=== PATIENT | female | born 1990 | race Caucasian/White ===

== ENCOUNTER 2019-07-31 15:37 | Inpatient (IN) | payer OTHER ==
[~2019-07-31 15:37] MED LIST: ISOVUE-370 76%-LOCM 1 ML ONE
[2019-07-31 16:14] LABS: #Basophils 0.1 thou/uL (0.0-0.2); #Eosinphils 0.2 thou/uL (0.0-0.7); #Lymphocytes 2.3 thou/uL (1.20-3.40); #Monocytes 0.4 thou/uL (0.11-0.59); #Neutrophils 4.8 thou/uL (1.40-6.50); %Basophils 1.4 % (0.0-1.0); %Eosinophils 2.6 % (0.0-10.0); %Monocytes 4.7 % (0.0-10.0); %Neutrophils 61.3 % (42.0-75.0); Hemoglobin 13.4 g/dL (12.0-16.0); Mean Corpuscular HGB CONC 33.6 g/dL (32.0-36.0); Mean Corpuscular Hemoglobin 30.4 pg (27.0-31.0); Mean Corpuscular Volume 90.2 fL (78.0-98.0); Mean Platelet Volume 7.5 fL (7.4-10.4); Platelet Count 286 thou/uL (130-400); RBC Distribution Width 11.3 % (11.5-14.5); Red Blood Cell (RBC) Count 4.41 mill/uL (4.20-5.40); White Blood Cell (WBC) Count 7.8 thou/uL (4.8-10.8)
[2019-07-31 16:17] LABS: Bilirubin Negative (Negative); Blood, Urine Negative (Negative); Clarity Clear (Clear); Glucose, Urine (Dipstick) Normal (Negative); Leukocyte Negative Leu/uL (Negative); Nitrite Negative (Negative); Protein, Urine (Dipstick) Negative (Neg-Trace); Urobilinogen Normal mg/dL (Less than 2)
[2019-07-31 16:35] LABS: ALT (SGPT) 8 U/L (8-55); AST (SGOT) 15 U/L (5-34); Albumin 4.5 g/dL (3.5-5.0); Alkaline Phosphatase 63 U/L (40-150); Anion Gap 11 mmol/L (10-20); BUN (Urea Nitrogen) 9 mg/dL (7.0-18.7); Bilirubin, Total 0.6 mg/dL (0.2-1.2); Calc. Creatinine Clearance 0 mL/min (70-130); Calcium 9.5 mg/dL (7.8-10.44); Carbon Dioxide 26 mmol/L (22-29); Chloride 101 mmol/L (98-107); Estimated GFR-MDRD 90; Globulin 3.2 g/dL (2.4-3.5); Glucose 78 mg/dL (70-105); Lipase 24 U/L (8-78); Potassium 3.9 mmol/L (3.5-5.1); Protein, Total 7.7 g/dL (6.0-8.3); Sodium 134 mmol/L (136-145)
[2019-07-31] MEDS ORDERED: Morphine 4 MG/ML VIAL ONE ×2 (18:20→21:27)
[2019-07-31] MEDS ORDERED: Ketorolac Tromethamine 30 MG/ML VIAL ONE (18:21)
[2019-07-31] MEDS ORDERED: Ondansetron PF 4 MG/2 ML Vial ONE (18:21)
[2019-07-31 18:31] LABS: BHCG - Serum Negative (NEGATIVE); Pregs Control Background? CLEAR/WHITE (CLR/WHITE); Pregs Control Bar Appear? YES (CONTROL BAR)
--- NOTE | 2019-07-31 19:19 | CT ---
CT Abdomen Pelvis W Con: 07/31/2019 6:48 PM CLINICAL INFORMATION: Bilateral flank pain COMPARISON: None. TECHNIQUE: Multiple contiguous axial images were obtained and a CT of the abdomen and pelvis with IV contrast. C oronal and sagittal reformats were performed. FINDINGS: Lower Chest: within normal limits. Abdomen: Liver: within normal limits. Bile Ducts: Normal caliber. Gallbladder: No calcified gallstones. Normal caliber wall. Pancreas: within normal limits. Spleen: within normal limits. Adrenals: within normal limits. Kidneys: within normal limits. Pelvis: Reproductive Organs: No pelvic masses. Ureters: within normal limits. Bladder: within normal limits. Peritoneum: No ascites or free air, no fluid collection. Bowel: Normal caliber. Normal appendix. Mesentery and Retroperitoneum: No enlarged mesenteric or retroperitoneal lymph nodes. Vessels: Normal. Abdominal Wall: within normal limits. Bones: Within normal limits IMPRESSION: No evidence of acute intraabdominal or pelvic abnormality.
[2019-07-31] MEDS ORDERED: Ondansetron PF 4 MG/2 ML Vial IVP PRN ×2 (21:41→23:46)
--- NOTE | 2019-07-31 22:31 | PDOC.EVN ---
Event Note - Event Note Event Note: [id number] H&P dictated
[2019-07-31] MEDS ORDERED: D5 1/2 NS w/20 mEq KCL 1,000 ML IV SCH (23:45)
[2019-07-31] MEDS ORDERED: Morphine 4 MG/ML VIAL SLOW IVP PRN (23:46)
[2019-07-31] MEDS ORDERED: Ondansetron ODT 4 MG TAB SL PRN (23:46)
[2019-08-01] MEDS: Sodium Chloride 0.9% 1,000 ML IV SCH ×3 (00:27→18:38)
[2019-08-01 00:39] VITALS: BMI 23.8
--- NOTE | 2019-08-01 01:21 | HP ---
CHIEF COMPLAINT: Bilateral flank pain. HISTORY OF PRESENT ILLNESS: Ms. Vega is a 28-year-old female with no significant past medical history, presented to the emergency room with bilateral flank pain that started around 10 days ago. The patient was seen at the clinic and was given Rocephin and an antibiotic. The patient reported the pain did not improve and has been getting worse. At the clinic, her urine showed UTI. Today, her workup including CT of the abdomen and pelvis, no acute findings. Urinalysis is unremarkable. The patient continued to have pain in spite of symptomatic management in the ED. The patient is being admitted to the hospital for further management. PAST MEDICAL HISTORY: No significant past medical history. PAST SURGICAL HISTORY: 1. section. 2. Right shoulder surgery. ALLERGIES: ALLERGIC TO BACTRIM. FAMILY HISTORY: Reviewed and noncontributory. SOCIAL HISTORY: She drinks socially. No smoking history. HOME MEDICATIONS: Please see home medication reconciliation form for updated medications. REVIEW OF SYSTEMS: Review of 14 systems negative except what is mentioned in the history of present illness. PHYSICAL EXAMINATION: VITAL SIGNS: Blood pressure 127/64, pulse is 77, respiratory rate is 18, temperature 99.1. HEAD: Normocephalic, atraumatic. NECK: Supple. No JVD. CHEST: Clear bilaterally. HEART: S1, S2. Regular. ABDOMEN: Soft with bilateral flank tenderness. Bowel sounds present. NEUROLOGIC: Awake, alert, oriented x3. PSYCHIATRIC: Normal mood. EXTREMITIES: No clubbing, or cyanosis. LABORATORY DATA: CT of the abdomen and pelvis, no acute finding. Urinalysis unremarkable. Electrolytes, sodium 134, otherwise unremarkable. CBC is unremarkable. ASSESSMENT: Ms. Vega is a 28-year-old female with no significant past medical history, presenting with bilateral flank pain for the last 10 days. 1. Intractable flank pain. 2. Recent urinary tract infection. PLAN: 1. Admit. 2. IV fluid hydration. 3. Symptomatic management. 4. Reassess in a.m. If the patient show significant clinical improvement, will be able to be discharged home. Job ID: [id number]
[2019-08-01] MEDS: Morphine 4 MG/ML VIAL SLOW IVP PRN ×2 (01:24→05:47)
[2019-08-01] MEDS ORDERED: Ketorolac Tromethamine 30 MG/ML VIAL IVP PRN (06:48)
[2019-08-01] MEDS ORDERED: Famotidine/PF 20 mg/2ml Vial SLOW IVP SCH (09:00)
[2019-08-01] MEDS ORDERED: Sodium Chloride 0.9% 10 ML ONE (10:12)
[2019-08-01] MEDS: Sodium Chloride 0.9% 10 ML ONE ×3 (10:18→10:21)
[2019-08-01] MEDS ORDERED: diphenhydrAMINE 50 MG/ML VIAL IVP SCH (12:45)
[2019-08-01] MEDS ORDERED: Sodium Chloride 0.9% 500 ML IV SCH (12:45)
[2019-08-01] MEDS ORDERED: Metoclopramide HCl 10 MG/2 ML VIAL IVP SCH (12:45)
[2019-08-01] MEDS ORDERED: Nitrofurantoin Monohyd/M-Cryst 100 MG CAP PO SCH (13:00)
[2019-08-01] MEDS ORDERED: Sodium Chloride 0.9% 20 ML ONE (14:23)
[2019-08-01] MEDS: Cyclobenzaprine 10 MG TAB PO SCH ×2 (15:00→20:46)
--- NOTE | 2019-08-01 16:50 | PDOC.HOSPP ---
- Subjective Encounter Date: 08/01/19 Encounter Time: 10:00 Subjective: pt up in bed complains of pain to her flank area currently she feels ok since she had some pain meds. pt also complains of a headache which has been going on for a while. she describes it as a frontal headache that goes to her occipital area. She is also nauseated. she denies taking any new meds except for her antibiotic but she had these symptoms before that. - Objective Vital Signs & Weight: Vital Signs (12 hours) Temp Pulse Resp BP BP BP BP 08/01/19 14:30 98.1 F 48 L 20 104/60 08/01/19 09:30 96/54 L 108/60 106/61 08/01/19 08:45 98.8 F 53 L 20 105/56 L 08/01/19 06:04 97.0 F L 61 16 94/52 L Pulse Ox 08/01/19 14:30 98 08/01/19 09:30 08/01/19 08:45 98 08/01/19 06:04 98 Weight Admit Weight 147 lb 5 oz Weight 147 lb 5 oz I&O: 07/31/19 08/01/19 08/02/19 06:59 06:59 06:59 Intake Total 562 Balance 562 Result Diagrams: 07/31/19 16:06 07/31/19 16:05 Hospitalist ROS - Review of Systems Respiratory: denies: cough, dry, shortness of breath, hemoptysis, SOB with excertion, pleuritic pain, sputum, wheezing, other Cardiovascular: denies: chest pain, palpitations, orthopnea, paroxysmal noc. dyspnea, edema, light headedness, other Gastrointestinal: reports: nausea. denies: vomiting, abdominal pain, diarrhea, constipation, melena, hematochezia, other Musculoskeletal: reports: back pain - Medication Medications: Active Medications Generic Name Dose Route Start Last Admin Trade Name Freq PRN Reason Stop Dose Admin Cyclobenzaprine HCl 10 mg 08/01/19 15:00 08/01/19 15:00 Flexeril PO 10 mg TID SID Administration Famotidine 20 mg 08/01/19 09:00 08/01/19 08:47 Pepcid SLOW IVP 20 mg Q12HR SID Administration Sodium Chloride 1,000 mls @ 100 mls/hr 07/31/19 21:45 08/01/19 10:18 Normal Saline 0.9% IV 1,000 mls .Q10H SID Administration Ketorolac Tromethamine 15 mg 08/01/19 06:48 08/01/19 10:15 Toradol IVP 08/06/19 06:49 15 mg Q6H PRN Administration Pain UNCONTROLLED BY MORPHINE Ondansetron HCl 4 mg 07/31/19 21:41 08/01/19 10:22 Zofran IVP 4 mg Q6H PRN Administration Nausea/Vomiting - Exam Neck: negative: supple, symmetric, no JVD, no thyromegaly, no lymphadenopathy, no carotid bruit, JVD Heart: negative: RRR, no murmur, no gallops, no rubs, normal peripheral pulses, irregular, diminshed peripheral pulses, murmur present, II/IV, III/IV Respiratory: negative: CTAB, no wheezes, no rales, no ronchi, normal chest expansion, no tachypnea, normal percussion, rales, rhonchi, tachypneic, wheezes Gastrointestinal: negative: soft, non-tender, non-distended, normal bowel sounds , no palpable masses, no hepatomegaly, no splenomegaly, no bruit, no guarding, no rigidity, tender to palpation, distended, diminished bowl sounds, voluntary guarding Hosp A/P (1) Flank pain Code(s): R10.9 - UNSPECIFIED ABDOMINAL PAIN Status: Acute (2) Sinus bradycardia Code(s): R00.1 - BRADYCARDIA, UNSPECIFIED Status: Acute (3) UTI (urinary tract infection) Status: Acute (4) Headache Code(s): R51 - HEADACHE Status: Acute - Plan ct abd/pel negative, her esr/crp normal. she was found to be bradycardiac will get ekg and she complains of being tired and nauseated. will get cardio consult. Her uti indicates staph saprophytico and her repeat urine is normal. her tsh is normal. will give her a migraine cocktail. Her lower back pain could be due to a muscle strain. will start pt on toradol and muscle relaxant. she tells me she has not been stressed recently. will also transfer the to [facility] since her hr has been low in the 40's.
[2019-08-01] MEDS: Ketorolac Tromethamine 30 MG/ML VIAL IVP SCH ×2 (18:23→23:03)
[2019-08-01] MEDS: Nitrofurantoin Monohyd/M-Cryst 100 MG CAP PO SCH (20:46)
[2019-08-01] MEDS: Famotidine 20 MG TAB PO SCH (20:46)
[2019-08-01] MEDS: Acetaminophen 325 MG TAB PO PRN (23:04)
[2019-08-02] MEDS: Sodium Chloride 0.9% 1,000 ML IV SCH ×2 (01:36→13:19)
[2019-08-02] MEDS: Ketorolac Tromethamine 30 MG/ML VIAL IVP SCH ×3 (05:30→18:07)
[2019-08-02] MEDS: Acetaminophen 325 MG TAB PO PRN ×2 (07:39→18:07)
[2019-08-02] MEDS: Nitrofurantoin Monohyd/M-Cryst 100 MG CAP PO SCH ×2 (08:45→20:47)
[2019-08-02] MEDS: Cyclobenzaprine 10 MG TAB PO SCH ×3 (08:45→20:47)
[2019-08-02] MEDS: Famotidine 20 MG TAB PO SCH ×2 (08:45→20:47)
[2019-08-02 09:16] LABS: Troponin I Less than 0.010 ng/mL (< 0.028)
--- NOTE | 2019-08-02 10:29 | CON ---
DATE OF CONSULTATION: 08/02/2019 REASON FOR CONSULTATION: Bradycardia. HISTORY OF PRESENT ILLNESS: Ms. Vega is a very pleasant 28-year-old woman. The patient was admitted to the hospital with flank pain. She had had a recent urinary tract infection, diagnosed based on urinalysis and symptoms. She was given antibiotics. She came in with flank pain, but further evaluation did not reveal any evidence of pyelonephritis. While she is here, she has no complaint of weakness and fatigue and it has been noted that her heart rates are in the 40s at times. She feels lightheaded when she gets up. She has no chest pain or pressure. No shortness of breath. PAST MEDICAL HISTORY: Urinary tract infection. SOCIAL HISTORY: No alcohol or tobacco. REVIEW OF SYSTEMS: CONSTITUTIONAL: Positive for weakness and fatigue. VISION: No changes. HEARING: No changes. PULMONARY: No cough or wheezing. GASTROINTESTINAL: No nausea, vomiting, or diarrhea. SKIN: No rashes. NEUROLOGIC: No unilateral weakness or numbness. PSYCHIATRIC: No unusual depression or anxiety. PHYSICAL EXAMINATION: GENERAL: This is a pleasant 28-year-old woman complains of weakness and fatigue. VITAL SIGNS: Her blood pressure is 103/62, pulse now is in the 60s, it was recorded as 44 earlier. HEENT: Eyes, sclerae are nonicteric. Mouth, mucous membranes moist. NECK: Supple. No lymphadenopathy. LUNGS: Clear. CARDIAC: She is not bradycardic currently. There is a 2/6 mid systolic murmur at the left mid sternal border. No diastolic murmur. No S3. ABDOMEN: Soft and nontender. EXTREMITIES: Warm and dry. No clubbing. No cyanosis or edema. Good peripheral pulses. PERTINENT LABORATORY DATA: Hemoglobin is 13.4. WBC was 7.8. Potassium was 3.9, sodium 134. Cardiac enzymes were negative. C-reactive protein 0.5. TSH 2.8. test was negative. EKG reveals sinus bradycardia, rate 45, low-voltage QRS, no acute changes. ASSESSMENT: 1. Sinus bradycardia. 2. Recent urinary tract infection. 3. Soft murmur. PLAN: 1. Echocardiogram to evaluate the murmur. 2. Encourage the patient to sit up on the side of the bed before getting up to allow her heart rate to come up. 3. Encourage her to try to start walking in the halls. 4. We will check iron levels in view of the fatigue. Job ID: [id number]
[2019-08-02 10:57] LABS: Iron 120 ug/dL (50-170); Iron Binding Capacity, Total 298 mcg/dL (265-497)
[2019-08-02] MEDS ORDERED: Metoclopramide HCl 10 MG/2 ML VIAL IVP SCH (16:30)
--- NOTE | 2019-08-02 16:54 | EKG ---
Test Reason : TACHY Blood Pressure : / mmHG Vent. Rate : 047 BPM Atrial Rate : 047 BPM P-R Int : 158 ms QRS Dur : 084 ms QT Int : 466 ms P-R-T Axes : 064 048 045 degrees QTc Int : 412 ms Marked sinus bradycardia Low voltage QRS Cannot rule out Anterior infarct , age undetermined Abnormal ECG No previous ECGs available Confirmed by DR. Mary Kate CULVER ([id number]) on 08/02/2019 4:54:25 PM Referred By: MI Confirmed By:DR. Mary Kate CULVER
--- NOTE | 2019-08-02 16:56 | EKG ---
Test Reason : CHEST TIGHTNESS Blood Pressure : / mmHG Vent. Rate : 045 BPM Atrial Rate : 045 BPM P-R Int : 154 ms QRS Dur : 086 ms QT Int : 450 ms P-R-T Axes : 058 068 047 degrees QTc Int : 389 ms Marked sinus bradycardia with marked sinus arrhythmia Low voltage QRS Abnormal ECG When compared with ECG of 01-AUG-2019 15:41, (Unconfirmed) No significant change was found Confirmed by DR. Mary Kate CULVER ([id number]) on 08/02/2019 4:55:54 PM Referred By: ANA Confirmed By:DR. Mary Kate CULVER
--- NOTE | 2019-08-02 17:14 | CT ---
CT OF THE BRAIN WITHOUT CONTRAST: 08/02/19 HISTORY: Headache. FINDINGS: No evidence of acute infarct, hemorrhage, midline shift, or abnormal extra-axial fluid collections ar e seen. The ventricular size is normal and the basilar cisterns patent. The bony calvarium is intact. The visualized paranasal sinuses and mastoid air cells are well aerated. IMPRESSION: No CT evidence of acute intracranial process. POS: OFF
[2019-08-02] MEDS: Dihydroergotamine Mesylate 1 MG/ML AMP SLOW IVP SCH (18:06)
[2019-08-02] MEDS: Metoclopramide HCl 10 MG/2 ML VIAL IVP SCH (18:07)
[2019-08-03] MEDS: Sodium Chloride 0.9% 1,000 ML IV SCH ×2 (00:04→08:56)
[2019-08-03] MEDS: Dihydroergotamine Mesylate 1 MG/ML AMP SLOW IVP SCH ×3 (00:05→13:21)
[2019-08-03] MEDS: Ketorolac Tromethamine 30 MG/ML VIAL IVP SCH ×3 (00:06→13:22)
[2019-08-03] MEDS: Metoclopramide HCl 10 MG/2 ML VIAL IVP SCH ×3 (00:07→13:23)
[2019-08-03] MEDS: Famotidine 20 MG TAB PO SCH ×2 (08:56→21:20)
[2019-08-03] MEDS: Cyclobenzaprine 10 MG TAB PO SCH ×3 (08:56→21:20)
[2019-08-03] MEDS: Nitrofurantoin Monohyd/M-Cryst 100 MG CAP PO SCH ×2 (08:56→21:20)
[2019-08-03] MEDS ORDERED: Dihydroergotamine Mesylate 1 MG/ML AMP SLOW IVP SCH (13:00)
--- NOTE | 2019-08-03 14:36 | PDOC.HOSPP ---
- Subjective Encounter Date: 08/03/19 Encounter Time: 10:30 Subjective: pt up in bed feels a little better - Objective Vital Signs & Weight: Vital Signs (12 hours) Temp Pulse Resp BP BP BP BP 08/03/19 11:39 98.7 F 46 L 17 128/60 122/57 L 130/61 08/03/19 07:45 98.5 F 42 L 18 132/64 08/03/19 04:00 98.2 F 40 L 12 120/68 Pulse Ox 08/03/19 11:39 97 08/03/19 07:45 97 08/03/19 04:00 96 Weight Admit Weight 147 lb 5 oz Weight 148 lb 1 oz I&O: 08/02/19 08/03/19 08/04/19 06:59 06:59 06:59 Intake Total 1400 3840 Balance 1400 3840 Result Diagrams: 07/31/19 16:06 07/31/19 16:05 Hospitalist ROS - Review of Systems Cardiovascular: denies: chest pain, palpitations, orthopnea, paroxysmal noc. dyspnea, edema, light headedness, other Gastrointestinal: denies: nausea, vomiting, abdominal pain, diarrhea, constipation, melena, hematochezia, other - Medication Medications: Active Medications Generic Name Dose Route Start Last Admin Trade Name Freq PRN Reason Stop Dose Admin Acetaminophen 650 mg 08/01/19 21:43 08/02/19 18:07 Tylenol PO 650 mg Q6H PRN Administration Headache/Fever or Pain Cyclobenzaprine HCl 10 mg 08/01/19 15:00 08/03/19 08:56 Flexeril PO 10 mg TID SID Administration Dihydroergotamine Mesylate 0.5 mg 08/03/19 13:00 08/03/19 13:33 D.H.E. 45 SLOW IVP 08/03/19 15:00 Not Given NOW SID Famotidine 20 mg 08/01/19 21:00 08/03/19 08:56 Pepcid PO 20 mg BID SID Administration Sodium Chloride 1,000 mls @ 100 mls/hr 07/31/19 21:45 08/03/19 08:56 Normal Saline 0.9% IV 1,000 mls .Q10H SID Administration Ketorolac Tromethamine 15 mg 08/01/19 06:48 08/01/19 10:15 Toradol IVP 08/06/19 06:49 15 mg Q6H PRN Administration Pain UNCONTROLLED BY MORPHINE Ketorolac Tromethamine 15 mg 08/01/19 18:00 08/03/19 13:22 Toradol IVP 08/06/19 18:01 15 mg Q6HR SID Administration Nitrofurantoin Macrocrystals 100 mg 08/01/19 21:00 08/03/19 08:56 Macrobid PO 100 mg BID SID Administration Ondansetron HCl 4 mg 07/31/19 21:41 08/01/19 10:22 Zofran IVP 4 mg Q6H PRN Administration Nausea/Vomiting Sodium Chloride 10 ml 08/02/19 21:00 08/03/19 08:56 Flush - Normal Saline IVF 10 ml Q12HR SID Administration - Exam Heart: negative: RRR, no murmur, no gallops, no rubs, normal peripheral pulses, irregular, diminshed peripheral pulses, murmur present, II/IV, III/IV Respiratory: negative: CTAB, no wheezes, no rales, no ronchi, normal chest expansion, no tachypnea, normal percussion, rales, rhonchi, tachypneic, wheezes Gastrointestinal: negative: soft, non-tender, non-distended, normal bowel sounds , no palpable masses, no hepatomegaly, no splenomegaly, no bruit, no guarding, no rigidity, tender to palpation, distended, diminished bowl sounds, voluntary guarding Hosp A/P (1) Flank pain Code(s): R10.9 - UNSPECIFIED ABDOMINAL PAIN Status: Acute (2) Sinus bradycardia Code(s): R00.1 - BRADYCARDIA, UNSPECIFIED Status: Acute (3) UTI (urinary tract infection) Status: Acute (4) Headache Code(s): R51 - HEADACHE Status: Acute - Plan ct abd/pel negative, her esr/crp normal. she was found to be bradycardiac will get ekg and she complains of being tired and nauseated. will get cardio consult. Her uti indicates staph saprophytico and her repeat urine is normal. her tsh is normal. will give her a migraine cocktail. Her lower back pain could be due to a muscle strain. will start pt on toradol and muscle relaxant. she tells me she has not been stressed recently. will also transfer the to tele since her hr has been low in the 40's. 08/03 pt to be evaluated by EP for bradycardia, stress test order. will monitor. ct head negative.
--- NOTE | 2019-08-03 14:38 | PDOC.HOSPP ---
- Subjective Encounter Date: 08/02/19 Encounter Time: 11:30 Subjective: pt up in bed states her headache is better but still has it. - Objective Vital Signs & Weight: Vital Signs (12 hours) Temp Pulse Resp BP BP BP BP 08/03/19 11:39 98.7 F 46 L 17 128/60 122/57 L 130/61 08/03/19 07:45 98.5 F 42 L 18 132/64 08/03/19 04:00 98.2 F 40 L 12 120/68 Pulse Ox 08/03/19 11:39 97 08/03/19 07:45 97 08/03/19 04:00 96 Weight Admit Weight 147 lb 5 oz Weight 148 lb 1 oz I&O: 08/02/19 08/03/19 08/04/19 06:59 06:59 06:59 Intake Total 1400 3840 Balance 1400 3840 Result Diagrams: 07/31/19 16:06 07/31/19 16:05 Hospitalist ROS - Review of Systems Cardiovascular: denies: chest pain, palpitations, orthopnea, paroxysmal noc. dyspnea, edema, light headedness, other Gastrointestinal: denies: nausea, vomiting, abdominal pain, diarrhea, constipation, melena, hematochezia, other Other: headache, nausea - Medication Medications: Active Medications Generic Name Dose Route Start Last Admin Trade Name Freq PRN Reason Stop Dose Admin Acetaminophen 650 mg 08/01/19 21:43 08/02/19 18:07 Tylenol PO 650 mg Q6H PRN Administration Headache/Fever or Pain Cyclobenzaprine HCl 10 mg 08/01/19 15:00 08/03/19 08:56 Flexeril PO 10 mg TID SID Administration Dihydroergotamine Mesylate 0.5 mg 08/03/19 13:00 08/03/19 13:33 D.H.E. 45 SLOW IVP 08/03/19 15:00 Not Given NOW SID Famotidine 20 mg 08/01/19 21:00 08/03/19 08:56 Pepcid PO 20 mg BID SID Administration Sodium Chloride 1,000 mls @ 100 mls/hr 07/31/19 21:45 08/03/19 08:56 Normal Saline 0.9% IV 1,000 mls .Q10H SID Administration Ketorolac Tromethamine 15 mg 08/01/19 06:48 08/01/19 10:15 Toradol IVP 08/06/19 06:49 15 mg Q6H PRN Administration Pain UNCONTROLLED BY MORPHINE Ketorolac Tromethamine 15 mg 08/01/19 18:00 08/03/19 13:22 Toradol IVP 08/06/19 18:01 15 mg Q6HR SID Administration Nitrofurantoin Macrocrystals 100 mg 08/01/19 21:00 08/03/19 08:56 Macrobid PO 100 mg BID SID Administration Ondansetron HCl 4 mg 07/31/19 21:41 08/01/19 10:22 Zofran IVP 4 mg Q6H PRN Administration Nausea/Vomiting Sodium Chloride 10 ml 08/02/19 21:00 08/03/19 08:56 Flush - Normal Saline IVF 10 ml Q12HR SID Administration - Exam Neck: negative: supple, symmetric, no JVD, no thyromegaly, no lymphadenopathy, no carotid bruit, JVD Heart: negative: RRR, no murmur, no gallops, no rubs, normal peripheral pulses, irregular, diminshed peripheral pulses, murmur present, II/IV, III/IV Respiratory: negative: CTAB, no wheezes, no rales, no ronchi, normal chest expansion, no tachypnea, normal percussion, rales, rhonchi, tachypneic, wheezes Hosp A/P (1) Flank pain Code(s): R10.9 - UNSPECIFIED ABDOMINAL PAIN Status: Acute (2) Sinus bradycardia Code(s): R00.1 - BRADYCARDIA, UNSPECIFIED Status: Acute (3) UTI (urinary tract infection) Status: Acute (4) Headache Code(s): R51 - HEADACHE Status: Acute - Plan ct abd/pel negative, her esr/crp normal. she was found to be bradycardiac will get ekg and she complains of being tired and nauseated. will get cardio consult. Her uti indicates staph saprophytico and her repeat urine is normal. her tsh is normal. will give her a migraine cocktail. Her lower back pain could be due to a muscle strain. will start pt on toradol and muscle relaxant. she tells me she has not been stressed recently. will also transfer the to [facility] since her hr has been low in the 40's. 9/18 will get neurology to see pt. will get ct brain. 08/03 pt to be evaluated by EP for bradycardia, stress test order. will monitor. ct head negative.
[2019-08-03] MEDS ORDERED: Ketorolac Tromethamine 30 MG/ML VIAL IVP PRN (17:04)
--- NOTE | 2019-08-03 18:40 | PRG ---
DATE OF SERVICE: 08/03/2019 SUBJECTIVE: Ms. Vega is still feeling some fatigue. Heart rate is 40 at rest. No chest pain or pressure. OBJECTIVE: VITAL SIGNS: Blood pressure 123/57, pulse 40. LUNGS: Clear. CARDIAC: Bradycardic. The stress test report, I am unable to find currently. The patient states she was able to get her heart rate up to 160. ASSESSMENT: 1. Symptomatic bradycardia. 2. No evidence of structural heart disease. PLAN: Give her a trial of theophylline to see if that increases the heart rate, but we are reluctant to place a pacemaker in such a young patient. I discussed with the patient. Job ID: [id number]
[2019-08-03] MEDS ORDERED: Topiramate 25 MG TAB PO SCH (21:00)
--- NOTE | 2019-08-04 01:06 | CON ---
DATE OF CONSULTATION: 08/03/2019 CONSULTING PHYSICIAN: Hospitalist Service. IMPRESSION: Status migrainosus. PLAN: 1. Discontinue DHE. 2. Topamax 50 mg at bedtime. 3. Toradol 30 mg IV as needed. 4. Office followup for management. HISTORY OF PRESENT ILLNESS: Ms. Vega is a 28-year-old woman who reports she has been having nearly constant headache for 2 weeks prior to admission. She came in with ongoing complaints of headache and bilateral flank pain. The flank pain apparently has resolved. Her CT of the abdomen and urinalysis were unremarkable. There is a history of a urinary tract infection. She had a CT of the brain done, which was normal. She was started on the Sam protocol last night. She reports her headache is significantly better. She is finishing her last dose as of now. She had an echocardiogram done, which was also normal. Her lab work including a CBC and iron levels were unremarkable. PAST MEDICAL HISTORY: Otherwise negative. FAMILY HISTORY: Noncontributory. ALLERGIES: NONE REPORTED. SOCIAL HISTORY: She is and has a child. No illicit drug use. REVIEW OF SYSTEMS: Ten-system review of systems is otherwise negative. PHYSICAL EXAMINATION: GENERAL: She is a healthy-appearing young woman, in no acute distress. VITAL SIGNS: Have been stable. She is afebrile. HEENT: Pupils are equal and reactive. Conjunctivae are clear. Oropharynx is clear. Cranium, normocephalic and atraumatic. NECK: Supple. NEUROLOGIC: She is alert and cooperative. Her speech is fluent and clear. Cranial nerves 2 through 12 are intact. She has no focal deficits. There are no abnormal movements. SUMMARY: This is a young woman with severe headache for the last 2 weeks that broke with Sam protocol. This would be consistent with a migraine. She has not been prone to headaches prior to this. I have suggested that we at least temporarily put her on a prophylactic medication and I can follow up with her. Job ID: [id number]
--- NOTE | 2019-08-04 01:07 | CON ---
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 Her problems are: 1. Marked bradycardia in the setting of migraine-like headaches. 2. Preserved LVEF at 60% to 65% obstruction. Normal heart with mild TR only. 3. 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 ALLERGIES: SHRIMP, SULFAMETHOXAZOLE, TRIMETHOPRIM. MEDICATIONS: At home included Estarylla control pill, albuterol sulfate. SUBJECTIVE: Ms. Vega is a 28-year-old woman, who has noticed progressive fatigue and tiredness and inability to exercise for the last 10 days. She also had concomitant initiation of her headaches. She was evaluated in her primary care physician's office, was given Rocephin and antibiotic, and UTI was noted. She had backache as well at that time. She was eventually admitted and continues to be fatigued and tired. Dr. Norton evaluated the patient and underwent echocardiogram, which was unremarkable. She continues to have headaches despite some improvement with current medication regimen Topamax, , metoclopramide, Toradol, Reglan. She denies full loss of consciousness with mild dizziness. No stroke-like symptoms. No neurological deficit. Otherwise, no fever, chills, or cough. Rest of 12-point system otherwise unremarkable. PAST MEDICAL HISTORY: As above. No prior history of heart disease or heart attacks. No congenital heart disease. No history of bradycardia in the past. SOCIAL HISTORY: The patient denies smoking, EtOH, or drug abuse. FAMILY HISTORY: Noncontributory. OBJECTIVE DATA: VITAL SIGNS: Blood pressure 123/57, heart rate 51, respirations 12, the patient is afebrile. GENERAL: Alert and oriented woman, in no apparent distress. NECK: Supple. Jugular vein is not distended. CHEST: Coarse without crackles. HEART: Sounds are regular to rate and rhythm. No murmur or gallop. ABDOMEN: Benign. Bowel sounds are positive. EXTREMITIES: Lower extremities without edema, clubbing, or cyanosis. Pulses are adequate. NEUROLOGIC: The patient is nonfocal. MUSCULOSKELETAL: No joint deformity. SKIN: Without rash. DATABASE: Head CT from 08/02/2019 shows no acute intracranial process. EKG is reviewed revealing sinus bradycardia, normal AV conduction, narrow QRS. LABORATORY DATA: White cell count 7.8, hemoglobin 13.4, platelet count is 286. Sodium 134, potassium 3.9, BUN 9, creatinine 0.77. AST and ALT are 15 and 8. TSH is 2.88. Serum test is negative. C-reactive protein is 0.5. ASSESSMENT AND PLAN: Ms. Vega is a pleasant 28-year-old woman with history of no particular medical issues, presenting with marked fatigue and bradycardia in the setting of headaches. So far, no structural abnormalities are seen. Bradycardia is excessive at rest, has mild improvement with exercise. The rationale for her bradycardia is not clear. She has no hypothyroidism and sinus node disease are unlikely. 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 I think it would be reasonable to consider Neurology evaluation and optimization of her migraine headache therapy. I would like to obtain a treadmill exercise stress test also to assess sinus node function, which I hope to be normal. I am expecting her symptoms and heart rate improve with controlling of her migraine headache issues. If no other options occur and her symptoms persist, pacemaker implantation is an option, although if possible due to her young age, this should be her last resort therapy. We discussed with Dr. Norton. Thank you again for allowing me to participate in the care of this patient. Job ID: [id number]
[2019-08-04] MEDS: Cyclobenzaprine 10 MG TAB PO SCH (08:29)
[2019-08-04] MEDS: Nitrofurantoin Monohyd/M-Cryst 100 MG CAP PO SCH (08:30)
[2019-08-04] MEDS: Famotidine 20 MG TAB PO SCH (08:30)
--- NOTE | 2019-08-04 10:31 | PRG ---
DATE OF SERVICE: 08/04/2019 SUBJECTIVE: Ms. Vega had a very difficult night last night. She got 300 mg of slow-release theophylline. She said she could not sleep all night. She felt "wired." She got up this morning, and her heart rate was in the about 48 to 50 at rest. When she stood up, it went to 130. She feels weak and fatigued. OBJECTIVE: VITAL SIGNS: Today, her blood pressure 101/58, pulse is outlined above, now it is 52 in the monitor, sinus. LUNGS: Clear. CARDIAC: Normal S1, normal S2. ASSESSMENT: 1. Symptomatic sinus bradycardia. 2. No evidence of any structural heart disease. 3. The patient did not tolerate 300 mg of theophylline. PLAN: The patient wishes to be released home. We will give her a loop recorder realtime to monitor heart rhythm. Starting tomorrow, try theophylline 100 mg a day. If the patient continues with symptomatic sinus bradycardia, pacemaker could be inserted, but we are very reluctant to do so in such a young patient, this would likely lead to long lifetime pacing. Job ID: [id number]
[2019-08-04 11:58] VITALS: BP 104/60; TEMP 98.7
--- NOTE | 2019-08-04 12:12 | PRG ---
DATE OF SERVICE: 08/04/2019 SUBJECTIVE: Ms. Vega seems to be doing better this morning. Her heart rates also have increased. She has no current dizziness, loss of consciousness, or headache. Also has been under control for last day. Dr. Gill, neurologist has seen him. OBJECTIVE: VITAL SIGNS: Blood pressure is 126/79 sitting, standing 101/58, supine 119/68; heart rate 48; respirations 16; temperature 98.9 degrees Fahrenheit this morning. At the time of exam, heart rates are up in the 60s. GENERAL: Alert and oriented woman, in no apparent distress. NECK: Supple. Jugular veins not distended. CHEST: Coarse without crackles. HEART: Sounds are regular to rate and rhythm. No murmur or gallop. ABDOMEN: Benign. Bowel sounds are positive. EXTREMITIES: Lower extremities without edema, clubbing, or cyanosis. ASSESSMENT AND PLAN: Ms. Vega is a very pleasant 28-year-old woman with new onset of headaches, which appears to be consistent with migraines as per Dr. Gill, the neurologist's assessment. She is under good control with topiramate and also was initiated on theophylline to increase her heart rate. Now, she is doing better. Heart rate somewhat increased. She is still not 100% normalized with her heart rates. Symptoms might be still present, but I am hoping that we can avoid the pacemaker implantation in this young lady. I discussed the pros and cons about this approach with her. I have to see her back after an outpatient monitor is completed, which Dr. Norton has already ordered. Job ID: [id number]
--- NOTE | 2019-08-05 02:33 | DIS ---
DATE OF ADMISSION: 07/31/2019 DATE OF DISCHARGE: 08/04/2019 DISCHARGE DIAGNOSES: 1. Bradycardia. 2. Flank pain. 3. Urinary tract infection. 4. Headache. HOSPITAL COURSE: The patient is a 28-year-old female, who initially came into the hospital with complaints of bilateral flank pain, nausea, dizziness, multiple complaints. At this time, she did have a CT of abdomen and pelvis, which was completely normal. She had recently UTI that was treated with antibiotics. She then was found to have marked bradycardia, heart rate in the 40s and 42s. At this time, she was transferred to the telemetry floor and Cardiology was consulted. She did have an echocardiogram. Her echocardiogram indicated an EF of 60% to 65% with structurally normal heart. Her TSH also was normal. Her ESR and CRP were normal. Given her marked bradycardia, she also was seen by Electrophysiology. Given her young age, they wanted to hold off on putting on a pacemaker and recommended theophylline. The patient will follow up with EP and will have a loop recorder or Holter monitor to closely monitor her heart rate. She actually felt better. After starting the theophylline, she did have some tachycardia, however, her dose was decreased by Cardiology. She will be discharged home. She will follow up with her primary and also with Electrophysiology. She also had a headache while she was in the hospital, but the headache has been going on before 10 days prior to coming into the hospital. At this time, I did consult Neurology and possible migraine versus the bradycardia that was causing her to have headaches. She was put on Topamax and she felt much better. She was able to eat, felt much. Her symptoms were improved significantly before she got discharged. HOME MEDICATIONS: Her home medications will be as of the following. She is going to be on; 1. Topamax 50 mg q.p.m. 2. Theophylline 100 mg daily. 3. Albuterol as needed for her asthma. PHYSICAL EXAMINATION: VITAL SIGNS: Temperature of 98.7, heart rate of 110, respirations 14, 97% on room air, blood pressure 104/60. GENERAL: She is awake, alert, and oriented x3. Does not appear in distress. CV: S1, S2 with no murmurs, rubs, or gallops. ABDOMEN: Soft and nontender. Bowel sounds are present x2. She also had a stress test, which the results were not up, however, Cardiology will follow that as outpatient. Again, she will be discharged home. She will follow up with primary. I have given her a recommendation for primary and also with EP. Her iron studies were also normal. Job ID: [id number]
[2019-08-05] MEDS ORDERED: Theophyllin SR 24HR 100 MG CAP PO SCH (09:00)
== END 2019-08-04 13:55 | disposition home or self-care (01) | DRG 103 ==
LOC: ERS 15:37 → ERHOLD 21:04 → OBSVTOIN 21:04 → 3SE 23:52 → 2NO 08-01 18:28
PROVIDERS: ADMIT Internal Medicine; ATTEND Internal Medicine
DX: G43.901 Migraine, unspecified, not intractable, with status migrainosus (principal); N39.0 Urinary tract infection, site not specified; R00.1 Bradycardia, unspecified; R10.9 Unspecified abdominal pain; S39.012A Strain of muscle, fascia and tendon of lower back, initial encounter; G44.89 Other headache syndrome
CPT/HCPCS: 36415; 70450; 74177; 80053; 81003; 82728; 83540; 83550; 83690; 84443; 84484; 84703; 85025; 85652; 86140; 93005; 93010; 93017; 93306; 96361; 96374; 96375; 96376; J1110; J1200; J1885; J2270; J2405; J2765; Q9966; S0028

== ENCOUNTER 2020-01-13 19:28 | Observation (INO) | payer OTHER ==
[2020-01-13] MEDS ORDERED: Aspirin Chewable 81 MG TAB ONE ×2 (19:52→21:57)
[2020-01-13 19:53] LABS: #Basophils 0.1 thou/uL (0.0-0.2); #Eosinphils 0.3 thou/uL (0.0-0.7); #Lymphocytes 2.6 thou/uL (1.20-3.40); #Monocytes 0.5 thou/uL (0.11-0.59); #Neutrophils 4.4 thou/uL (1.40-6.50); %Basophils 1.1 % (0.0-1.0); %Eosinophils 4.2 % (0.0-10.0); %Lymphocytes 32.2 % (21.0-51.0); %Monocytes 6.4 % (0.0-10.0); %Neutrophils 56.1 % (42.0-75.0); Hemoglobin 13.2 g/dL (12.0-16.0); Mean Corpuscular HGB CONC 33.7 g/dL (32.0-36.0); Mean Corpuscular Hemoglobin 30.8 pg (27.0-31.0); Mean Corpuscular Volume 91.5 fL (78.0-98.0); Mean Platelet Volume 8.4 fL (7.4-10.4); Platelet Count 238 thou/uL (130-400); RBC Distribution Width 11.5 % (11.5-14.5); Red Blood Cell (RBC) Count 4.27 mill/uL (4.20-5.40); White Blood Cell (WBC) Count 7.9 thou/uL (4.8-10.8)
--- NOTE | 2020-01-13 20:13 | RAD ---
EXAM: Portable chest PROVIDED CLINICAL HISTORY: Chest pain COMPARISON: None FINDINGS: Cardiac and mediastinal silhouette is within normal limits. No focal consolidation, pleural fluid or pneumothorax evident. Left subclavian cardiac pacing device is noted, with lead tip overlying expected location of RA. IMPRESSION: No evidence for an acute cardiopulmonary process.
[2020-01-13 20:14] LABS: ALT (SGPT) 7 U/L (8-55); AST (SGOT) 13 U/L (5-34); Alkaline Phosphatase 70 U/L (40-110); Anion Gap 14 mmol/L (10-20); BUN (Urea Nitrogen) 8 mg/dL (7.0-18.7); Bilirubin, Total 0.5 mg/dL (0.2-1.2); Calc. Creatinine Clearance 0 mL/min (70-130); Calcium 9.8 mg/dL (7.8-10.44); Carbon Dioxide 25 mmol/L (22-29); Chloride 101 mmol/L (98-107); Estimated GFR-MDRD 88; Globulin 3.1 g/dL (2.4-3.5); Glucose 116 mg/dL (70-105); Potassium 4.3 mmol/L (3.5-5.1); Protein, Total 8.1 g/dL (6.0-8.3); Sodium 136 mmol/L (136-145)
[2020-01-13 21:36] LABS: BHCG - Serum Negative (NEGATIVE); Pregs Control Background? CLEAR/WHITE (CLR/WHITE); Pregs Control Bar Appear? YES (CONTROL BAR)
[2020-01-13] MEDS ORDERED: Lorazepam 2 MG/ML VIAL ONE (21:57)
[2020-01-13] MEDS ORDERED: Acetaminophen 325 MG TAB PO PRN (22:11)
[2020-01-13] MEDS ORDERED: Senokot S 8.6-50 MG TAB PO PRN (22:11)
[2020-01-13] MEDS ORDERED: HYDROcodone/Acetaminophen 5/325 mg Tablet PO PRN (22:11)
[2020-01-13 23:26] LABS: Troponin I Less than 0.010 ng/mL (< 0.028)
[2020-01-14 00:06] VITALS: BMI 22.1
--- NOTE | 2020-01-14 00:44 | PDOC.HHP ---
Hospitalist HPI - History of Present Illness Sharp chest pain History of Present Illness: 29F presents to the ED for evaluation of intermittent sharp chest pain around her pacemaker site. Reports pain lasted about a minute, made her nauseated, sweaty and felt like she was going to pass out. 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 Reports feeling palpations and dizziness over the last week which are new for her. Reports she was diagnosed in July 2019 with tachy-s[address]rie and Dr. Shultz recommended the pacemaker. Reports her mother has similar symptoms but remains untreated. Denies recent illness, travel, fever, chills, syncope. Chest pain first started last night and has had several episodes today. Reports pain takes her breath away. Denies missing any doses of her medications for hypotension. Takes her BP at home and denies changes over the last several weeks. ED Course: EKG with NSR, no changes, initial troponin negative and nothing remarkable with lab work. Will admit for serial troponins. Hospitalist ROS - Review of Systems Constitutional: denies: fever, chills, sweats, weakness, malaise, other Eyes: denies: pain, vision change, conjunctivae inflammation, eyelid inflammation, redness, other ENT: denies: ear pain, ear discharge, nose pain, nose discharge, nose congestion , mouth pain, mouth swelling, throat pain, throat swelling, other Respiratory: denies: cough, dry, shortness of breath, hemoptysis, SOB with excertion, pleuritic pain, sputum, wheezing, other Cardiovascular: reports: chest pain, palpitations Gastrointestinal: reports: nausea Genitourinary: denies: dysuria, frequency, incontinence, hematuria, retention, other Musculoskeletal: denies: neck pain, shoulder pain, arm pain, back pain, hand pain, leg pain, foot pain, other Skin: denies: rash, lesions, veronica, bruising, other Neurological: denies: weakness, numbness, incoordination, change in speech, confusion, seizures, other Hospitalist History - Past Medical History Cardiac: reports: Other (tachy-sherrie syndrome, orthostatic hypotension) Pulmonary: reports: no pertinent history [employer]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 Gastrointestinal: reports: no pertinent history - Past Surgical History Past Surgical History: reports: , Other (shoulder surgery) - Family History Family History: reports: Other (mother has similar issues with pre-syncope, dizziness) - Social History Smoking Status: Never smoker Alcohol: reports: Occassional Drugs: reports: none Living Situation: With Family Activity level: independent ambulation - Exam Eye: PERRL ENT: normocephalic atraumatic Neck: supple, no JVD Heart: RRR, normal peripheral pulses Respiratory: CTAB, normal chest expansion Gastrointestinal: soft, non-tender Extremities: no edema Skin: normal turgor Neurological: no focal deficits Musculoskeletal: normal tone Psychiatric: normal affect, A&O x 3 Hospitalist Results - Labs Result Diagrams: 01/13/20 19:42 01/13/20 19:42 Lab results: WBC 7.9 thou/uL (4.8-10.8) 01/13/20 19:42 Hgb 13.2 g/dL (12.0-16.0) 01/13/20 19:42 Hct 39.1 % (36.0-47.0) 01/13/20 19:42 MCV 91.5 fL (78.0-98.0) 01/13/20 19:42 Plt Count 238 thou/uL (130-400) 01/13/20 19:42 Neutrophils % 56.1 % (42.0-75.0) 01/13/20 19:42 Sodium 136 mmol/L (136-145) 01/13/20 19:42 Potassium 4.3 mmol/L (3.5-5.1) 01/13/20 19:42 Chloride 101 mmol/L (98-107) 01/13/20 19:42 Carbon Dioxide 25 mmol/L (22-29) 01/13/20 19:42 BUN 8 mg/dL (7.0-18.7) 01/13/20 19:42 Creatinine 0.78 mg/dL (0.6-1.1) 01/13/20 19:42 Glucose 116 mg/dL (70-105) H 01/13/20 19:42 Calcium 9.8 mg/dL (7.8-10.44) 01/13/20 19:42 Total Bilirubin 0.5 mg/dL (0.2-1.2) 01/13/20 19:42 AST 13 U/L (5-34) 01/13/20 19:42 ALT 7 U/L (8-55) L 01/13/20 19:42 Alkaline Phosphatase 70 U/L (40-110) 01/13/20 19:42 Troponin I Less than 0.010 ng/mL (< 0.028) 01/13/20 22:57 Serum Total Protein 8.1 g/dL (6.0-8.3) 01/13/20 19:42 Albumin 5.0 g/dL (3.5-5.0) 01/13/20 19:42 Hospitalist H&P A/P - Problem (1) 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 Harding who agrees to plan
[2020-01-14] MEDS: Sodium Chloride 0.9% 1,000 ML IV SCH ×2 (01:26→10:27)
[2020-01-14 01:52] LABS: #Basophils 0.1 thou/uL (0.0-0.2); #Eosinphils 0.4 thou/uL (0.0-0.7); #Lymphocytes 2.9 thou/uL (1.20-3.40); #Monocytes 0.5 thou/uL (0.11-0.59); #Neutrophils 3.8 thou/uL (1.40-6.50); %Basophils 1.5 % (0.0-1.0); %Eosinophils 5.1 % (0.0-10.0); %Monocytes 6.2 % (0.0-10.0); %Neutrophils 49.2 % (42.0-75.0); Mean Corpuscular HGB CONC 33.7 g/dL (32.0-36.0); Mean Corpuscular Hemoglobin 30.8 pg (27.0-31.0); Mean Corpuscular Volume 91.4 fL (78.0-98.0); Mean Platelet Volume 8.1 fL (7.4-10.4); Platelet Count 189 thou/uL (130-400); RBC Distribution Width 11.6 % (11.5-14.5); Red Blood Cell (RBC) Count 3.56 mill/uL (4.20-5.40); White Blood Cell (WBC) Count 7.7 thou/uL (4.8-10.8)
[2020-01-14 02:12] LABS: Troponin I 0.013 ng/mL (< 0.028)
[2020-01-14 03:30] LABS: Anion Gap 12 mmol/L (10-20); BUN (Urea Nitrogen) 7 mg/dL (7.0-18.7); Calc. Creatinine Clearance 123 mL/min (70-130); Calcium 8.8 mg/dL (7.8-10.44); Carbon Dioxide 22 mmol/L (22-29); Cardiac Risk 2.7 (Less than 4.5); Chloride 108 mmol/L (98-107); Cholesterol 120 mg/dl (< 200 Desired); Estimated GFR-MDRD Greater than 90; Glucose 132 mg/dL (70-105); HDL Cholesterol 44 mg/dL (>60 Neg Risk); LDL Cholesterol, Calculated 61 mg/dL; Potassium 3.5 mmol/L (3.5-5.1); Sodium 138 mmol/L (136-145); Triglycerides 75 mg/dL (Less than 150)
[2020-01-14] MEDS ORDERED: Famotidine 20 MG TAB PO SCH (09:00)
[2020-01-14] MEDS ORDERED: Fludrocortisone Acetate 0.1 MG TAB PO SCH (09:00)
[2020-01-14] MEDS: Midodrine HCl 5 MG TAB PO SCH ×3 (09:34→17:48)
--- NOTE | 2020-01-14 20:55 | PDOC.HOSPP ---
- Subjective Encounter Date: 01/14/20 Encounter Time: 18:30 Subjective: Patient seen and examined. Intermittent CP +. No overnight events - Objective Vital Signs & Weight: Vital Signs (12 hours) Temp Pulse Resp BP BP BP BP 01/14/20 18:55 98.2 F 60 14 138/61 01/14/20 17:20 60 16 131/76 116/64 123/67 01/14/20 15:05 98.8 F 60 14 140/85 01/14/20 11:53 98.2 F 60 16 123/70 Pulse Ox 01/14/20 18:55 97 01/14/20 17:20 01/14/20 15:05 99 01/14/20 11:53 99 Weight Weight 137 lb 1.6 oz I&O: 01/13/20 01/14/20 01/15/20 06:59 06:59 06:59 Intake Total 1485 1513 Output Total 200 1500 Balance 1285 13 Result Diagrams: 01/14/20 01:45 01/14/20 01:45 EKG Reviewed by me: Yes (Tele paced) Hospitalist ROS - Review of Systems Respiratory: denies: cough, dry, shortness of breath, hemoptysis, SOB with excertion, pleuritic pain, sputum, wheezing, other Cardiovascular: denies: chest pain, palpitations, orthopnea, paroxysmal noc. dyspnea, edema, light headedness, other - Medication Medications: Active Medications Generic Name Dose Route Start Last Admin Trade Name Freq PRN Reason Stop Dose Admin Acetaminophen 650 mg 01/13/20 22:11 01/14/20 09:34 Tylenol PO 650 mg Q4H PRN Administration Headache/Fever/Mild Pain (1-3) Midodrine 10 mg 01/14/20 08:00 01/14/20 17:48 Proamatine PO 10 mg TID-WM SID Administration - Exam General Appearance: NAD Neck: supple, no JVD Heart: RRR, no gallops Respiratory: no wheezes, no ronchi Gastrointestinal: non-tender, normal bowel sounds Extremities: no cyanosis Hosp A/P (1) Chest pain Code(s): R07.9 - CHEST PAIN, UNSPECIFIED Status: Acute (2) Orthostatic hypotension Code(s): I95.1 - ORTHOSTATIC HYPOTENSION Status: Chronic (3) 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
[2020-01-14] MEDS: HYDROcodone/Acetaminophen 5/325 mg Tablet PO PRN (23:47)
--- NOTE | 2020-01-15 07:07 | CON ---
DATE OF CONSULTATION: 01/14/2020 INDICATION FOR CONSULTATION: A 29-year-old female with orthostatic hypotension and also had significant symptomatic bradycardia in the past. Back in July of last year, she underwent a single-chamber pacemaker, right atrial pacemaker. Since that time, she has been relatively well, but still continues to have increased fatigue and says she still continues to have dizziness. She still has only mild orthostatic hypotension. Today, she had orthostatics repeated and shows a blood pressure lying of 122/67 and standing was 116/64. Heart rate remained the same and she is pacing. She did have an interrogation of the pacemaker, which showed that she is pacing approximately 57% of the time. She did have one episode of what appeared to be atrial tachycardia with heart rate up to 180s. This occurred around 1:30 in the morning on December 24. She has been on Florinef as well as midodrine for her orthostatic hypotension. The dose of Florinef was 0.1 mg a day and the dose of the midodrine is 10 mg t.i.d. She still continued to have dizziness and says she has extreme fatigue at home and yesterday, she noticed that she had a sharp pain in the left chest around the pacemaker site and then had some discomfort afterwards with some discomfort more medial to the pacemaker, but does not appear to have any abnormalities. Otherwise, no evidence of infection and chest x-ray appears to be normal. Otherwise, her bradycardia is not a problem. She has not had any episodes where it appeared that the pacemaker has failed. She did have what appeared to be some artifact on the telemetry monitoring here where it appeared possibly she could have had some second-degree heart block type 2. However, the rate remains absolutely normal and this appears more to be an artifact than actual loss of conduction. She has atrial pacing. There has been no loss of conduction. The pacemaker interrogation otherwise appeared to be normal. 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 ALLERGIES: SHE IS ALLERGIC TO SHRIMP, SULFAMETHOXAZOLE, AND TRIMETHOPRIM. MEDICATIONS: At home include Florinef 0.1 mg daily, midodrine 10 mg three times a day. SOCIAL HISTORY: No history of alcohol or tobacco abuse. She is . She has children, who are alive and well, young boys. FAMILY HISTORY: Noncontributory. REVIEW OF SYSTEMS: Unremarkable except as noted in the history of present illness. She is actively trying to go and exercise and unable to do so due to the lightheadedness and dizziness. PHYSICAL EXAMINATION: GENERAL: Reveals a well-developed, well-nourished female, who is in no acute distress. VITAL SIGNS: Her blood pressure is 140/85 at this time, O2 saturations 95%, respiratory rate is 14, heart rate is in the 60s and appears to be pacing. She is afebrile. HEENT: Shows the head to be normocephalic and atraumatic. Carotid pulses are present. There are no bruits. There is no JVD. The thyroid is not enlarged. Oral mucosa was pink and moist. CHEST: Clear to auscultation without rales, rhonchi, or wheezing. CARDIOVASCULAR: Reveals a regular rate and rhythm. Normal S1, S2. There is no S3 or S4. There were no significant murmurs, heaves, thrills, bruits, or rubs. She has a well-healed surgical incision of the pacemaker site in the left infraclavicular area. There are no other significant abnormalities in the chest noted. ABDOMEN: Soft and nontender. EXTREMITIES: Showed no clubbing, cyanosis, or edema. Pedal pulses are present. NEUROLOGIC: She appears to be intact. Again, orthostatics were not significant, from lying was 123/67, sitting was 131/76, and standing was 116/64. LABORATORY DATA: Shows a WBC of 7.7, hemoglobin 11, platelet counts 189,000. Her sodium was 138, potassium 3.5, BUN was 7 with a creatinine 0.67. LDL was 61, cholesterol was 120 total, and blood sugar was 132. Chest x-ray shows a single-chamber pacemaker in the right atrium with what appears to be normal chest x-ray otherwise and the interrogation of the pacemaker appears to be normal. She did have one episode on December 24, where she had an episode of what appeared to be atrial tachycardia, supraventricular tachycardia with heart rate of 185 beats per minute. This lasted about 30 seconds and then resolved. This occurred early in the morning approximately, I believe, 1:35 a.m. She has had no further syncopal episodes since the pacemaker was inserted, but she says sometimes she does feel like she is going to pass out, but she is yet to have a syncopal episode. IMPRESSION: Orthostatic hypotension with symptomatic bradycardia in the past, which has been corrected by pacemaker insertion, but the orthostatic hypotension apparently still persists. She is on midodrine as well as Florinef. I will increase the Florinef to 0.2 mg a day. If this is not adequate, eventually we may need to switch her to droxidopa or continue to increase the Florinef up to a maximum of 0.5 mg a day to see whether or not this will help some with her orthostatic hypotension. Further care of the patient will be by Dr. Norton when he visits with the patient tomorrow morning. We will also ask Dr. Shultz to examine the tracings that were performed when the pacemaker was interrogated for the 30 seconds of the supraventricular tachycardia, but she did not appear to be symptomatic at that time and apparently was sleeping. Job ID: [id number]
[2020-01-15] MEDS ORDERED: Calcium Carbonate 500 MG ChewTAB PO PRN (08:34)
[2020-01-15] MEDS ORDERED: Mag-Al 1200 mg/1200 mg/30 ML UDCUP PO PRN (08:34)
[2020-01-15] MEDS ORDERED: Ondansetron ODT 4 MG TAB PO PRN (08:34)
[2020-01-15] MEDS: Fludrocortisone Acetate 0.1 MG TAB PO SCH (08:37)
[2020-01-15] MEDS: Midodrine HCl 5 MG TAB PO SCH ×3 (08:37→16:42)
--- NOTE | 2020-01-15 22:44 | PDOC.HOSPP ---
- Subjective Encounter Date: 01/15/20 Encounter Time: 15:00 Subjective: Patient seen and examined for CP/symptomatic bradycardia. Intermittent CP. No other complaints. No overnight events - Objective Vital Signs & Weight: Vital Signs (12 hours) Temp Pulse Resp BP Pulse Ox 01/15/20 16:02 98.2 F 69 16 115/58 L 98 01/15/20 12:08 97.9 F 60 16 114/67 98 Weight Weight 138 lb 9.6 oz I&O: 01/14/20 01/15/20 01/16/20 06:59 06:59 06:59 Intake Total 1485 1983 650 Output Total 200 2700 800 Balance 1285 -187 -150 Result Diagrams: 01/14/20 01:45 01/14/20 01:45 EKG Reviewed by me: Yes (Tele paced) Hospitalist ROS - Review of Systems Respiratory: denies: cough, dry, shortness of breath, hemoptysis, SOB with excertion, pleuritic pain, sputum, wheezing, other Cardiovascular: denies: chest pain, palpitations, orthopnea, paroxysmal noc. dyspnea, edema, light headedness, other - Medication Medications: Active Medications Generic Name Dose Route Start Last Admin Trade Name Freq PRN Reason Stop Dose Admin Acetaminophen 650 mg 01/13/20 22:11 01/14/20 09:34 Tylenol PO 650 mg Q4H PRN Administration Headache/Fever/Mild Pain (1-3) Hydrocodone Bitart/Acetaminophen 1 tab 01/13/20 22:11 01/15/20 16:42 Grethel 5/325 PO 1 tab Q4H PRN Administration Moderate Pain (4-6) Hydrocodone Bitart/Acetaminophen 2 tab 01/13/20 22:11 01/14/20 23:47 Grethel 5/325 PO 2 tab Q4H PRN Administration Severe Pain (7-10) Fludrocortisone Acetate 0.2 mg 01/15/20 09:00 01/15/20 08:37 Florinef PO 0.2 mg DAILY SID Administration Midodrine 10 mg 01/14/20 08:00 01/15/20 16:42 Proamatine PO 10 mg TID-WM SID Administration - Exam General Appearance: NAD Neck: supple, no JVD Heart: no gallops, no rubs Respiratory: no wheezes Gastrointestinal: non-tender, non-distended Extremities: no clubbing Hosp A/P (1) Chest pain Code(s): R07.9 - CHEST PAIN, UNSPECIFIED Status: Acute (2) Orthostatic hypotension Code(s): I95.1 - ORTHOSTATIC HYPOTENSION Status: Chronic (3) Tachy-sherrie syndrome Code(s): I49.5 - SICK SINUS SYNDROME Status: Chronic (4) AV block Code(s): I44.30 - UNSPECIFIED ATRIOVENTRICULAR BLOCK Status: Acute - Plan DVT proph w/SCDs Cont Midodrine Cont Florinef 0.2 mg daily Possible PM upgrade today Cont other meds as above
[2020-01-16] MEDS ORDERED: Lidocaine 1% (PF) 30 ML VIAL ONE (06:45)
[2020-01-16] MEDS ORDERED: Propofol 500 MG/50 ML VIAL ONE (07:43)
[2020-01-16] MEDS ORDERED: PROPOFOL 40 ML ONE (07:45)
[2020-01-16] MEDS ORDERED: diphenhydrAMINE 50 MG/ML VIAL ONE (08:35)
[2020-01-16] MEDS ORDERED: Hydrocortisone Sod Succ/PF 100 mg/2 ml Vial ONE (08:35)
--- NOTE | 2020-01-16 09:20 | CON ---
DATE OF CONSULTATION: Dictated by Dorothy Restrepo, Nurse Practitioner, as scribe for Dr. Navdeep Shultz. REASON FOR CONSULTATION: Symptomatic arrhythmia and conduction disease. HISTORY OF PRESENT ILLNESS: Ms. Vega is a 29-year-old woman with a history of vasovagal syncope and marked bradycardia with vasodepressor effect complicating her severe dizzy episodes. She had a degree of postural orthostatic tachycardia as well. She had a single-chamber pacemaker implanted that helped with support of her symptoms. However, she still requires high dose of midodrine with some recurrence of symptoms. She was last seen in November when her midodrine was further titrated up and the possibility of discontinuing midodrine in favor of Northera was contemplated. We found that she presented to [facility] on January 13. She was reporting fatigue and dizziness. Her pacemaker was interrogated and there was some concern for an atrial tachycardia. She had sharp pain in her left chest around the pacemaker site the day before she came to the emergency room with some residual discomfort that moved medially. Chest x-ray was performed and was essentially normal. Her bradycardia is not a problem and being corrected with pacemaker. There was some concern for second-degree Mobitz block prompting Electrophysiology consultation. Ms. Vega is currently reporting occasional palpitations and left chest wall pain around the site of her pacemaker. She endorses some dizziness and fatigue. Otherwise, she denies any true syncopal episodes, stroke, or stroke-like symptoms. REVIEW OF SYSTEMS: 12-point review of systems is negative except that listed above in HPI. PAST MEDICAL HISTORY: 1. Symptomatic bradycardia in the setting of migraine headaches. 2. Single-chamber atrial pacemaker implanted on 08/30/[address] [employer]. 3. Left ventricular ejection fraction normal by echo in July 2019, estimated at 60% to 65%. 4. 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 5. Migraine headaches. 6. Postural orthostatic tachycardia/dysautonomia. ALLERGIES: BACTRIM. MEDICATIONS: Home medications include: 1. Midodrine 10 mg p.o. t.i.d. 2. Florinef 0.2 mg daily. OBJECTIVE: VITAL SIGNS: Temperature 97.9, pulse 60, blood pressure 114/67, oxygen saturation is 98%, respirations 16. GENERAL: The patient is on room air. The patient is alert and oriented. Speech is clear. Affect is appropriate. She is in no apparent distress at the time of the exam. NECK: Supple without jugular venous distention. There is no lymphadenopathy. Trachea is midline. LUNGS: Clear to auscultation bilaterally without wheezes, crackles, or rhonchi. HEART: Heart rate is irregularly irregular with crisp S1 and S2. There is left-sided precordial pacemaker, site is without reaction and has healed nicely. ABDOMEN: Soft and nontender without palpable masses. EXTREMITIES: Warm and dry to touch. Well perfused without clubbing, cyanosis, or edema. NEUROLOGIC: Grossly intact and nonfocal. Gait was not assessed. DATABASE: Telemetry and EKG were reviewed, which largely show atrial sensing and ventricular pacing with intact AV rebel conduction. There are some episodes of second-degree Mobitz type 1 block during the night and day with correlation of symptoms. IMPRESSION: 1. Transient second-degree Mobitz type 1 AV block with correlation of symptoms occurring both at night and during the day. 2. History of vasovagal syncope with postural orthostatic tachycardia syndrome, being treated with midodrine and Florinef. 3. Sinus tachycardia. 4. Single-chamber atrial [employer] pacemaker. PLAN AND RECOMMENDATIONS: Ms. Vega is having symptoms that correlate with her episodes of her second-degree heart block, Mobitz type 1. At the time of her pacemaker implant, she was having vasovagal syncope, but intact AV rebel conduction, so single-chamber device was implanted. At this point in light of her conduction disease that is seen and the symptoms associated, she may benefit from upgrade to a dual-chamber system. This can be done in the near future. We discussed the risks, benefits, and alternatives. She is in favor of having an additional wire added to her pacemaker to help treat her ongoing symptoms. We did discuss the fact that her symptoms may not completely resolve with the addition of an RV lead. It is certainly not her POTS syndrome and orthostatic issues. She will require continued support with midodrine and Florinef and supportive therapy. If her medication regimen is ineffective, we could also consider transitioning to [facility]. Thank you for allowing me to participate in the care of this patient. We will continue to follow and arrange for an RV lead implant in the near future. Job ID: [id number]
--- NOTE | 2020-01-16 10:13 | RAD ---
CHEST 1 VIEW: Date: 01/16/2020 Time: 0933 hours HISTORY: Pacemaker placement. FINDINGS: Comparison made to exam of 01/13/2020. There has been interval removal of the previous pacemaker and placement of a new pacemaker with bipol ar leads in the right atrium and right ventricle since the exam of 01/13/2020. The heart size is norm al. The lungs are expanded without lobar consolidation, pneumothoraces, or pleural effusions. IMPRESSION: No acute process. POS: TPC
[2020-01-16] MEDS: Midodrine HCl 5 MG TAB PO SCH ×2 (10:21→11:50)
[2020-01-16] MEDS: HYDROcodone/Acetaminophen 5/325 mg Tablet PO PRN (10:23)
[2020-01-16] MEDS: Fludrocortisone Acetate 0.1 MG TAB PO SCH (10:24)
[2020-01-16] MEDS ORDERED: Ondansetron PF 4 MG/2 ML Vial IVP PRN (10:29)
[2020-01-16] MEDS ORDERED: Acetaminophen/Codeine 30-300mg Tablet PO PRN ×2 (10:30)
[2020-01-16 11:05] VITALS: BP 126/59; TEMP 98.1
[2020-01-16] MEDS ORDERED: Cephalexin 250 MG CAP PO SCH (13:00)
--- NOTE | 2020-01-16 23:15 | DIS ---
DATE OF ADMISSION: 01/13/2020 DATE OF DISCHARGE: 01/16/2020 DISCHARGE DISPOSITION: Home. FOLLOWUP: 1. Follow up with primary care physician, Dr. Angela Robles in 1 week. 2. Follow up with Cardiology, Dr. Norton, and Electrophysiology, Dr. Shultz as scheduled. DISCHARGE MEDICATIONS: 1. Fludrocortisone dose was increased to 0.2 mg daily. 2. Keflex 500 mg every 6 hourly for 7 days. 3. Midodrine 10 mg 3 times a day. The patient was seen on the day of discharge. Denies any new complaints. No chest pain, shortness of breath, palpitations, lightheadedness, or dizziness reported. Orthostatic vitals were negative. BRIEF HOSPITAL COURSE: The patient is a 29-year-old female with symptomatic bradycardia, status post pacemaker and postural orthostatic tachycardia/dysautonomia, presented to the hospital with chest discomfort along with intermittent palpitations. Please refer to the history and physical for further details. The patient was admitted to the telemetry unit with the above diagnosis. A campus monitor was consistent with transient second-degree Mobitz type 1 block that was correlating with her symptoms. Due to orthostatic hypotension, fludrocortisone dose was increased. She was evaluated by Cardiology and Electrophysiology. Pacemaker was upgraded to dual-chamber system. She has been cleared by consultants for discharge. FINAL DIAGNOSES: 1. Chest discomfort with symptomatic arrhythmia and conduction disease. 2. History of symptomatic bradycardia with a single-chamber pacemaker in the past. This was upgraded to dual-chamber this admission. 3. History of migraine headaches. 4. Postural orthostatic tachycardia/dysautonomia. The patient understands the plan of care. Job ID: [id number]
--- NOTE | 2020-01-20 15:19 | EKG ---
Test Reason : Blood Pressure : / mmHG Vent. Rate : 060 BPM Atrial Rate : 060 BPM P-R Int : 212 ms QRS Dur : 086 ms QT Int : 416 ms P-R-T Axes : 021 054 031 degrees QTc Int : 416 ms Atrial-paced rhythm with prolonged AV conduction Abnormal ECG Confirmed by NICHOLE TERAN ([id number]), video editor EDMOND LOZANO ([id number]) on 01/20/2020 3:19:00 PM Referred By: Confirmed By:NICHOLE TERAN
== END 2020-01-16 14:45 | disposition home or self-care (01) ==
LOC: ERS 19:28 → 2SW 22:07
PROVIDERS: ADMIT Internal Medicine; ATTEND Internal Medicine
PROC: 0JPT0PZ Removal of Cardiac Rhythm Related Device from Trunk Subcutaneous Tissue and Fascia, Open Approach (ICD-10-PCS; principal; 2020-01-16)
PROC: 0JH606Z Insertion of Pacemaker, Dual Chamber into Chest Subcutaneous Tissue and Fascia, Open Approach (ICD-10-PCS; 2020-01-16)
PROC: 02H64JZ Insertion of Pacemaker Lead into Right Atrium, Percutaneous Endoscopic Approach (ICD-10-PCS; 2020-01-16)
PROC: 02HK4JZ Insertion of Pacemaker Lead into Right Ventricle, Percutaneous Endoscopic Approach (ICD-10-PCS; 2020-01-16)
DX: I49.5 Sick sinus syndrome (principal); I95.1 Orthostatic hypotension; Z79.899 Other long term (current) drug therapy; Z88.2 Allergy status to sulfonamides; Z91.013 Allergy to seafood
CPT/HCPCS: 33214; 36005; 36415; 71045; 75820; 80048; 80053; 80061; 84443; 84484; 84703; 85025; 85379; 93005; 96361; 96374; C1785; G0378; J0690; J1200; J1720; J2001; J2060; J2704; J3490

== ENCOUNTER 2020-04-02 12:45 | Outpatient (CLI) | payer OTHER ==
--- NOTE | 2020-04-02 14:06 | RAD ---
PORTABLE CHEST: 04/02/20 HISTORY: Dyspnea. Pacemaker complications. COMPARISON: 01/16/20. Lungs appear clear of infiltrate. Heart and mediastinum unremarkable. Vasculature is upper normal and stable. Dual lead pacemaker is again noted with leads appearing in adequate position. IMPRESSION: No acute abnormality identified. POS: AGW
== END 2020-04-02 12:46 | disposition home or self-care (01) ==
LOC: BICRAD 12:45
PROVIDERS: ATTEND Nurse Practitioner
DX: R06.00 Dyspnea, unspecified (principal); T82.9XXA Unspecified complication of cardiac and vascular prosthetic device, implant and graft, initial encounter
CPT/HCPCS: 71045

== ENCOUNTER 2020-06-12 22:01 | Observation (INO) | payer OTHER ==
[2020-06-12 23:15] LABS: #Basophils 0.1 thou/uL (0.0-0.2); #Eosinphils 0.2 thou/uL (0.0-0.7); #Lymphocytes 2.8 thou/uL (1.20-3.40); #Monocytes 0.6 thou/uL (0.11-0.59); #Neutrophils 4.5 thou/uL (1.40-6.50); %Basophils 1.2 % (0.0-1.0); %Eosinophils 2.8 % (0.0-10.0); %Monocytes 7.1 % (0.0-10.0); %Neutrophils 54.9 % (42.0-75.0); Mean Corpuscular HGB CONC 33.3 g/dL (32.0-36.0); Mean Corpuscular Hemoglobin 30.7 pg (27.0-31.0); Mean Corpuscular Volume 92.2 fL (78.0-98.0); Mean Platelet Volume 8.4 fL (7.4-10.4); Platelet Count 241 thou/uL (130-400); RBC Distribution Width 11.9 % (11.5-14.5); Red Blood Cell (RBC) Count 4.24 mill/uL (4.20-5.40); White Blood Cell (WBC) Count 8.2 thou/uL (4.8-10.8)
[2020-06-12 23:36] LABS: ALT (SGPT) 9 U/L (8-55); AST (SGOT) 17 U/L (5-34); Albumin 4.5 g/dL (3.5-5.0); Alkaline Phosphatase 71 U/L (40-110); Anion Gap 13 mmol/L (10-20); BUN (Urea Nitrogen) 9 mg/dL (7.0-18.7); Bilirubin, Total 0.4 mg/dL (0.2-1.2); Calc. Creatinine Clearance 0 mL/min (70-130); Calcium 9.2 mg/dL (7.8-10.44); Carbon Dioxide 26 mmol/L (22-29); Chloride 101 mmol/L (98-107); Estimated GFR-MDRD Greater than 90; Globulin 3.1 g/dL (2.4-3.5); Glucose 84 mg/dL (70-105); Potassium 4.2 mmol/L (3.5-5.1); Protein, Total 7.6 g/dL (6.0-8.3); Sodium 136 mmol/L (136-145)
[2020-06-13 00:04] LABS: Pregnancy Test - Urine (BHCG) Negative (Negative)
[2020-06-13 00:05] LABS: Pregu Control Background? CLEAR/WHITE (CLR/WHITE); Pregu Control Bar Appear? YES (CONTROL BAR); Specific Gravity 1.017 (1.002-1.036)
[2020-06-13] MEDS ORDERED: Aspirin Chewable 81 MG TAB ONE (00:21)
[2020-06-13 00:24] LABS: CKMB 0.5 ng/mL (0-6.6)
[2020-06-13 02:45] LABS: Troponin I 0.017 ng/mL (< 0.028)
[2020-06-13] MEDS ORDERED: Acetaminophen 325 MG TAB PO PRN (03:04)
[2020-06-13 03:18] VITALS: BMI 20.9
[2020-06-13] MEDS ORDERED: Morphine 2 MG/ML VIAL SLOW IVP SCH (03:45)
[2020-06-13 05:17] LABS: #Basophils 0.1 thou/uL (0.0-0.2); #Eosinphils 0.2 thou/uL (0.0-0.7); #Lymphocytes 2.4 thou/uL (1.20-3.40); #Monocytes 0.4 thou/uL (0.11-0.59); #Neutrophils 3.2 thou/uL (1.40-6.50); %Basophils 0.8 % (0.0-1.0); %Eosinophils 3.5 % (0.0-10.0); %Lymphocytes 38.1 % (21.0-51.0); %Monocytes 6.7 % (0.0-10.0); %Neutrophils 50.8 % (42.0-75.0); Hemoglobin 12.2 g/dL (12.0-16.0); Mean Corpuscular HGB CONC 31.2 g/dL (32.0-36.0); Mean Corpuscular Hemoglobin 28.7 pg (27.0-31.0); Mean Platelet Volume 7.6 fL (7.4-10.4); Platelet Count 227 thou/uL (130-400); RBC Distribution Width 11.8 % (11.5-14.5); Red Blood Cell (RBC) Count 4.26 mill/uL (4.20-5.40); White Blood Cell (WBC) Count 6.2 thou/uL (4.8-10.8)
[2020-06-13 05:47] LABS: Anion Gap 11 mmol/L (10-20); BUN (Urea Nitrogen) 8 mg/dL (7.0-18.7); Calc. Creatinine Clearance 116 mL/min (70-130); Calcium 9.3 mg/dL (7.8-10.44); Carbon Dioxide 29 mmol/L (22-29); Chloride 102 mmol/L (98-107); Estimated GFR-MDRD Greater than 90; Glucose 86 mg/dL (70-105); Sodium 138 mmol/L (136-145)
[2020-06-13 09:54] LABS: Bacteria/HPF 1+ HPF (None Seen); Bilirubin Negative (Negative); Blood, Urine 1+ (Negative); Clarity Clear (Clear); Glucose, Urine (Dipstick) Normal (Negative); Ketone, Urine Trace mg/dL (Negative); Leukocyte Negative Leu/uL (Negative); Nitrite Negative (Negative); Protein, Urine (Dipstick) Negative (Neg-Trace); RBC/HPF 0-3 HPF (0-3); Specific Gravity, Urine 1.018 (1.002-1.036); Urobilinogen Normal mg/dL (Less than 2); WBC/HPF 0-3 HPF (0-3); pH, Urine 6.5 (5.0-9.0)
[2020-06-13 09:55] LABS: Urine Culture Reflex No No
[2020-06-13] MEDS ORDERED: Bisacodyl 10 MG SUPP PR PRN (10:24)
[2020-06-13] MEDS ORDERED: Ondansetron PF 4 MG/2 ML Vial IVP PRN (10:24)
[2020-06-13] MEDS ORDERED: Guaifenesin DM 100-10/5 ML UDCUP PO PRN (10:24)
[2020-06-13] MEDS ORDERED: Calcium Carbonate 500 MG ChewTAB PO PRN (10:24)
[2020-06-13] MEDS ORDERED: Senokot S 8.6-50 MG TAB PO PRN (10:24)
[2020-06-13] MEDS ORDERED: Sodium Chloride 0.9% 1,000 ML IV SCH (10:30)
[2020-06-13] MEDS ORDERED: Ketorolac Tromethamine 30 MG/ML VIAL IVP STA (10:50)
[2020-06-13] MEDS ORDERED: Colchicine 0.3 MG TAB PO SCH (10:51)
[2020-06-13] MEDS ORDERED: Colchicine 0.6 MG TAB PO SCH (11:00)
--- NOTE | 2020-06-13 12:10 | CON ---
DATE OF CONSULTATION: 06/13/2020 REASON FOR CONSULTATION: Chest pain. HISTORY OF PRESENT ILLNESS: Ms. Vega is a 29-year-old woman. She has a history of severe orthostatic hypotension, vasovagal syncope, and previous pacemaker insertion. She, a month ago, was started on droxidopa with a marked improvement in her symptoms. Yesterday, she started having the onset of chest pain. It starts in the middle of her chest and spreads across her chest. She finally came to the emergency room. The pain has been persistent and then sometimes the pain goes through her back. She does not seem to make much difference if she lays down or sits up, but it is definitely worse when she takes a deep breath. The patient does not use tobacco. Does not smoke. No other risk factors for coronary artery disease. MEDICATIONS: At home as mentioned, she takes droxidopa. PAST MEDICAL HISTORY: She has a history of dual-chamber pacemaker insertion for bradyarrhythmias. PHYSICAL EXAMINATION: GENERAL: This is a very pleasant 29-year-old woman who continued to have chest pain. VITAL SIGNS: Blood pressure 119/83, pulse 60, on the monitor it is atrial paced, ventricular sensed. NECK: Neck veins are normal. Normal carotid upstrokes. LUNGS: Clear. CARDIAC: Normal S1. Normal S2. There is no murmur, rub, or gallop. ABDOMEN: Soft and nontender. No hepatosplenomegaly. EXTREMITIES: Warm, dry. No clubbing, cyanosis, or edema. Good peripheral pulses. PERTINENT LABORATORY: She has one indeterminate troponin at 0.043. The others are in the normal range. Hemoglobin is 12.2, WBC 6.2. EKG reveals atrial paced, ventricular sensed rhythm with no changes. ASSESSMENT: 1. Chest pain, very suspicious for pericarditis clinically, especially with the description of the pain and worsening with a breath. 2. Extremely low risk factor profile for coronary artery disease. PLAN: 1. Anti-inflammatories. We will start with a dose of Toradol. 2. Colchicine. 3. Try to avoid steroids if at all possible. I will check back with her later. Hopefully, the patient will have a quick resolution of her symptoms with the above treatment. Job ID: [id number]
[2020-06-13 14:22] LABS: SARS-CoV-2 MS2 Positive; SARS-CoV-2 N Gene Negative; SARS-CoV-2 S Gene Negative; SARS-CoV-2 by NAA Not Detected (NotDetected); SARS-CoV-2 orf1ab Negative
[2020-06-13] MEDS: DROXIDOPA PO SCH ×2 (14:44→21:02)
[2020-06-13] MEDS: HYDROcodone/Acetaminophen 5/325 mg Tablet PO PRN ×2 (17:58→22:21)
--- NOTE | 2020-06-13 18:41 | HP ---
REASON FOR ADMISSION: Chest pain. HISTORY OF PRESENTING ILLNESS: The patient gives history of developing retrosternal chest pain with radiation to both shoulders. This happened around 06:30 p.m. She was in her backyard and standing when this started. The patient tried to sit down and lay back. Her tried to prop her up, but then the patient fell backwards. She also had shortness of breath for a brief moment when this happened. The pain was sharp in nature and was a 6 to 7/10 in intensity. No complaints of fever, cough, or expectoration. No exposure to coronavirus as such. Has no complaints of palpitations or PND. PAST MEDICAL AND SURGICAL HISTORY: History of pacemaker, orthostatic hypotension. CURRENT MEDICATIONS: The patient is on Northera 500 mg 3 times daily. ALLERGIES: SULFA AND SHRIMP. PERSONAL HISTORY: Does not abuse alcohol or drugs. No history of smoking. 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 FAMILY HISTORY: The patient is adopted. CODE STATUS: Full. Power of trademark attorney is her . REVIEW OF SYSTEMS: CONSTITUTIONAL: Negative for weight loss or gain, ability to conduct usual activities. SKIN: Negative for rash, itching. EYES: Negative for double vision, pain. ENT/MOUTH: Negative for nose bleeding, neck stiffness, pain, tenderness. CARDIOVASCULAR: Negative for palpitations, dyspnea on exertion, orthopnea. RESPIRATORY: Negative for shortness of breath, wheezing, cough, hemoptysis, fever or night sweats. GASTROINTESTINAL: Negative for poor appetite, abdominal pain, heartburn, nausea, vomiting, constipation, or diarrhea. GENITOURINARY: Negative for urgency, frequency, dysuria, nocturia. MUSCULOSKELETAL: Negative for pain, swelling. NEUROLOGIC/PSYCHIATRIC: Negative for anxiety, depression. ALLERGY/IMMUNOLOGIC: Negative for skin rash, bleeding tendency. PHYSICAL EXAMINATION: GENERAL: The patient is a 29-year-old female, who is currently not in any acute distress. VITAL SIGNS: Blood pressure 124/84, pulse 62 per minute, respiratory rate 18 per minute, temperature 97.7 degrees Fahrenheit, and saturating 98% on room air. NECK: Supple. No elevated JVD. HEENT: Eyes; extraocular muscles intact. Pupils reacting to light. Oral cavity, mucous membranes are moist. No exudates or congestion. CARDIOVASCULAR: S1, S2 heard. Regular rhythm. RESPIRATORY: Air entry 2+ bilateral. No rales or rhonchi. ABDOMEN: Soft. Bowel sounds heard. No tenderness, rigidity, or guarding. EXTREMITIES: No peripheral edema or calf tenderness. VASCULAR SYSTEM: Peripheral pulses 2+, bilateral. No ischemic ulcerations or gangrene. CENTRAL NERVOUS SYSTEM: No gross focal motor deficits noted. The patient is alert, awake, oriented well. PSYCHIATRIC: The patient's mood is euthymic. No hallucinations or delusions. LABORATORY DATA: EKG done shows normal sinus rhythm. COVID-19 PCR is not detected. Urine test is negative. BUN 8, creatinine 0.6. Troponin 1st set was 0.04; subsequent three sets are negative. CK-MB 0.5. Magnesium 1.9, albumin 4.5, serum bicarb is 26. D-dimer is less than 0.27. H and H 12 and 39, platelet count 227 with white count of 6. CLINICAL IMPRESSION AND PLAN: The patient will be under observation on telemetry for chest pain. I have discussed her findings with Dr. Norton. The patient will continue on Northera 500 mg 3 times daily as before. Dr. Norton will evaluate the patient. The patient likely might have pericarditis. She is otherwise hemodynamically stable for now. No signs of ACS on the EKG or telemetry. Job ID: [id number]
[2020-06-13] MEDS: Colchicine 0.6 MG TAB PO SCH (21:02)
[2020-06-13] MEDS ORDERED: Ketorolac Tromethamine 30 MG/ML VIAL IVP SCH (21:30)
[2020-06-14 05:51] LABS: Anion Gap 9 mmol/L (10-20); BUN (Urea Nitrogen) 9 mg/dL (7.0-18.7); Calc. Creatinine Clearance 114 mL/min (70-130); Calcium 8.6 mg/dL (7.8-10.44); Carbon Dioxide 27 mmol/L (22-29); Chloride 104 mmol/L (98-107); Estimated GFR-MDRD Greater than 90; Glucose 75 mg/dL (70-105); Potassium 4.4 mmol/L (3.5-5.1); Sodium 136 mmol/L (136-145)
[2020-06-14] MEDS ORDERED: Ketorolac Tromethamine 30 MG/ML VIAL IVP SCH ×2 (06:00→12:15)
[2020-06-14] MEDS: Colchicine 0.6 MG TAB PO SCH (08:53)
[2020-06-14] MEDS: DROXIDOPA PO SCH ×2 (08:53→16:57)
--- NOTE | 2020-06-14 12:38 | PRG ---
DATE OF SERVICE: 06/14/2020 SUBJECTIVE: Ms. Vega's chest pain is improved today, but she still has chest pain best relief of pain. She last tried to lie flat, it is worse. These symptoms are typical of pericarditis. The EKG did not show any ST changes, but her typical symptoms are typical of pericarditis. OBJECTIVE: VITAL SIGNS: Her blood pressure 126/68, pulse 60 and it is regular. LUNGS: Clear. CARDIAC: Normal S1 and normal S2. I do not hear murmur, rub, or gallop. ABDOMEN: Soft and nontender. EXTREMITIES: No clubbing or cyanosis. There is no edema. ASSESSMENT: Chest pain, typical of pericarditis. One troponin level that was in the indeterminate range again compatible with pericarditis. PLAN: 1. We will do an echocardiogram. 2. Colchicine 0.6 mg twice a day. 3. She is on anti-inflammatories. She got Toradol this morning. We will give her another dose now, then start ibuprofen this evening, continue for a couple of weeks. 4. We will see in the office in 2 or 3 weeks. Okay with me for to go home after the echocardiogram. Job ID: [id number]
[2020-06-14 15:54] VITALS: BP 110/75; TEMP 98.5
[2020-06-14] MEDS ORDERED: Ibuprofen 600 MG TAB PO SCH (17:00)
--- NOTE | 2020-06-15 13:37 | DIS ---
DATE OF ADMISSION: 06/13/2020 DATE OF DISCHARGE: 06/14/2020 DISCHARGE DISPOSITION: Home. PRIMARY DISCHARGE DIAGNOSES: Suspected acute pericarditis with chest pain, history of pacemaker. PROCEDURES DONE DURING HOSPITALIZATION: Echo with 2D Doppler showed ejection fraction of 55% to 60%. No evidence of pericardial effusion was seen on the echo. H and H 12 and 39, platelet count 227, MCV 92, white count of 6. D-dimer less than 0.27. BUN 9, creatinine 0.6. Troponin x3 negative. COVID-19 PCR on 06/13/2020 was negative. Urine test is negative. DISCHARGE MEDICATIONS: 1. Colchicine 0.6 mg p.o. twice daily for 30 days. 2. Motrin 400 mg p.o. three times daily for 2 weeks. 3. Northera 500 mg p.o. three times daily. ALLERGIES: SHRIMP, SULFA. DISCHARGE PLAN: The patient to follow up with Dr. Norton in 2 weeks. She needs follow up with her primary care physician Angela Robles in 1 week. BRIEF COURSE DURING HOSPITALIZATION: The patient initially got admitted on the with complaints of retrosternal chest pain radiating to both shoulders. She has known history of orthostatic hypotension and had a pacemaker placed in the past. In view of this history, she was placed under observation and has had consultation with Dr. Norton. She was suspected to have acute pericarditis. There was no pericardial effusion on the echo. She received two doses of Toradol and got relief with her pain. She was also placed on colchicine and Motrin during her stay here. She needs to continue colchicine for 4 weeks and Motrin for 2 weeks per Cardiology advice. She has remained hemodynamically stable and has been cleared for discharge by Dr. Norton. Please note, I have seen and examined the patient on the day of discharge. She needs to follow up with Dr. Norton in 2 weeks. Job ID: [id number]
== END 2020-06-14 17:39 | disposition home or self-care (01) ==
LOC: ERS 22:01 → 2SE 06-13 03:14
PROVIDERS: ADMIT Internal Medicine; ATTEND Internal Medicine
DX: R07.2 Precordial pain (principal); I95.1 Orthostatic hypotension; Z79.899 Other long term (current) drug therapy; Z88.1 Allergy status to other antibiotic agents; Z88.2 Allergy status to sulfonamides; Z91.013 Allergy to seafood; Z95.0 Presence of cardiac pacemaker; Z20.828 Contact with and (suspected) exposure to other viral communicable diseases
CPT/HCPCS: 36415; 80048; 80053; 81001; 81025; 82553; 83735; 84484; 85025; 85379; 87635; 93005; 93010; 93306; 96361; 96374; 96375; 96376; G0378; J1885; J2270; U0003

== ENCOUNTER 2020-09-03 08:01 | Emergency (ER) | payer OTHER ==
[2020-09-03 08:42] LABS: #Basophils 0.1 thou/uL (0.0-0.2); #Eosinphils 0.2 thou/uL (0.0-0.7); #Lymphocytes 1.8 thou/uL (1.20-3.40); #Monocytes 0.8 thou/uL (0.11-0.59); %Basophils 0.6 % (0.0-1.0); %Eosinophils 1.1 % (0.0-10.0); %Monocytes 5.6 % (0.0-10.0); %Neutrophils 79.6 % (42.0-75.0); Hemoglobin 13.9 g/dL (12.0-16.0); Mean Corpuscular HGB CONC 34.3 g/dL (32.0-36.0); Mean Corpuscular Volume 93.3 fL (78.0-98.0); Mean Platelet Volume 8.3 fL (7.4-10.4); Platelet Count 263 thou/uL (130-400); RBC Distribution Width 11.2 % (11.5-14.5); Red Blood Cell (RBC) Count 4.34 mill/uL (4.20-5.40); White Blood Cell (WBC) Count 13.8 thou/uL (4.8-10.8)
[2020-09-03] MEDS ORDERED: Iopamidol-370 76% 500 ML 1 ML ONE (08:56)
--- NOTE | 2020-09-03 08:59 | RAD ---
EXAM: Chest PA and lateral: HISTORY: Chest pain COMPARISON: 08/30/2019, 07/11/2020 FINDINGS: Left-sided transvenous pacemaker, unchanged in position. Heart: Normal cardiac silhouette Aorta: Unremarkable Pulmonary vessels: Normal Costophrenic angles: Costophrenic angles are clear. Lungs: No consolidation or masses. Pneumothorax: No pneumothorax Osseous structures: No osseous abnormalities IMPRESSION: No acute cardiopulmonary process.
[2020-09-03 09:05] LABS: ALT (SGPT) Less than 7 U/L (8-55); AST (SGOT) 15 U/L (5-34); Albumin 4.4 g/dL (3.5-5.0); Alkaline Phosphatase 65 U/L (40-110); Anion Gap 15 mmol/L (10-20); BUN (Urea Nitrogen) 9 mg/dL (7.0-18.7); Bilirubin, Total 0.5 mg/dL (0.2-1.2); CK (CPK) 44 U/L (29-168); Calc. Creatinine Clearance 0 mL/min (70-130); Calcium 9.3 mg/dL (7.8-10.44); Carbon Dioxide 26 mmol/L (22-29); Chloride 102 mmol/L (98-107); Estimated GFR-MDRD 87; Globulin 3.1 g/dL (2.4-3.5); Glucose 90 mg/dL (70-105); Lipase 17 U/L (8-78); Potassium 4.3 mmol/L (3.5-5.1); Protein, Total 7.5 g/dL (6.0-8.3); Sodium 139 mmol/L (136-145)
[2020-09-03] MEDS ORDERED: methylPREDNISolone Sod Succ/PF 125 MG/2 ML VIAL ONE (10:09)
[2020-09-03] MEDS ORDERED: Ketorolac Tromethamine 30 MG/ML VIAL ONE (10:09)
[2020-09-03 10:55] LABS: BHCG - Serum Negative (NEGATIVE); Pregs Control Background? CLEAR/WHITE (CLR/WHITE); Pregs Control Bar Appear? YES (CONTROL BAR)
--- NOTE | 2020-09-03 11:32 | CT ---
EXAM: CTA of the chest HISTORY: Chest pain. Sick sinus syndrome. History of pericarditis COMPARISON: None TECHNIQUE: Multiple contiguous axial images were obtained a CTA of the chest with contrast per pulmon polina embolism protocol. 3-D oblique MIP reformats and direct coronal reformats were performed. FINDINGS: HEART: Normal in size without focal cardiac abnormality. No pericardial thickening is seen. No perica rdial effusion. PULMONARY ARTERIES: Normal in caliber without filling defects to suggest pulmonary emboli. MEDIASTINUM: No hilar or mediastinal lymphadenopathy. LUNGS: No focal infiltrates or masses. PLEURAL SPACE: No pleural effusion or pneumothorax. CHEST WALL SOFT TISSUES: Unremarkable VISUALIZED OSSEOUS STRUCTURES: No acute abnormality. VISUALIZED SUBDIAPHRAGMATIC STRUCTURES: Unremarkable IMPRESSION: No evidence of pulmonary thromboembolism
== END 2020-09-03 12:46 | disposition home or self-care (01) ==
LOC: ERS 08:01
DX: I31.9 Disease of pericardium, unspecified (principal); R55 Syncope and collapse; I10 Essential (primary) hypertension; Z79.899 Other long term (current) drug therapy; Z79.52 Long term (current) use of systemic steroids
CPT/HCPCS: 36415; 71046; 71275; 80053; 82550; 83690; 83735; 84484; 84703; 85025; 93005; 96374; 96375; J1885; J2930; Q9967

== ENCOUNTER 2024-11-21 17:05 | Emergency (ER) | payer BC, OTHER ==
[2024-11-21] MEDS ORDERED: Ondansetron ODT 4 MG TAB ONE (18:26)
[2024-11-21] MEDS ORDERED: Morphine 4 MG/ML VIAL ONE (18:26)
== END 2024-11-21 18:40 | disposition home or self-care (01) ==
LOC: ERS 17:05
DX: M25.512 Pain in left shoulder (principal); Z95.0 Presence of cardiac pacemaker
CPT/HCPCS: 96372; 99283; J2272; Q0162

== ENCOUNTER 2024-12-29 10:16 | Outpatient (CLI) | payer BC | END 2024-12-29 10:17 | disposition home or self-care (01) | LOC: BICRAD 10:16 | PROVIDERS: ATTEND Nurse Practitioner Family | DX: M54.32 Sciatica, left side (principal) | CPT/HCPCS: 72100 ==